=== PATIENT | male | born 1980 | race Caucasian/White ===

== ENCOUNTER 2025-02-24 14:21 | Emergency (ER) | payer MEDICAID ==
[~2025-02-24] VITALS: Ht 162.6 cm; Wt 68.0 kg
[2025-02-24 14:26] VITALS: TEMP 97.8
[2025-02-24] MEDS ORDERED: TDAP [DIPH/PERTUSSIS/TET] 0.5 ML VIAL IM ONE (17:59)
[2025-02-24] MEDS ORDERED: LIDOCAINE 1% INJ 50 ML MDV IJ ONE (18:00)
[2025-02-24] MEDS ORDERED: BACI/NEOM/POLY B OINT PKT 1 UDPKT PACKET ONE (18:01)
[2025-02-24] MEDS: TDAP [DIPH/PERTUSSIS/TET] 0.5 ML VIAL IM ONE (18:04)
[2025-02-24] MEDS: LIDOCAINE 1% INJ 50 ML MDV IJ ONE (18:10)
[2025-02-24] MEDS: BACI/NEOM/POLY B OINT PKT 1 UDPKT PACKET TP ONE (18:10)
[2025-02-24 18:30] VITALS: BP 170/99; O2SAT 96
[2025-02-24] MEDS ORDERED: CYCL5TAB PO (18:53)
[2025-02-24] MEDS ORDERED: IBUP-1955 PO (18:53)
== END 2025-02-24 19:12 | disposition left against medical advice (07) ==
LOC: ER 14:25 → EDBD 14:25 → ER 19:12
DX: S01.01XA Laceration without foreign body of scalp, initial encounter (principal); M79.10 Myalgia, unspecified site; M79.642 Pain in left hand; Z59.00 Homelessness unspecified; Z79.899 Other long term (current) drug therapy; S09.90XA Unspecified injury of head, initial encounter; Y00.XXXA Assault by blunt object, initial encounter; Y93.89 Activity, other specified; Y92.89 Other specified places as the place of occurrence of the external cause; Y99.8 Other external cause status
CPT/HCPCS: 12002; 70450; 70486; 71045; 72125; 72170; 73030; 73090; 73130; 73552; 90471; 90715; 99285; A6403; J3490